=== PATIENT | male | born 1945 | race Asian ===

== ENCOUNTER 2017-05-31 11:41 | Inpatient (IN) | payer OTHER ==
[~2017-05-31] VITALS: Ht 167.6 cm; Wt 65.8 kg
[2017-05-31 12:25] VITALS: BP 164/86
[2017-05-31 12:44] LABS: HEMATOCRIT 43.1 % (42.0-52.0); HEMOGLOBIN 15.1 G/DL (14.2-18.0); MEAN CORPUSCULAR VOLUME 92 FL (80-99); PLATELET COUNT 203 K/UL (150-450); RED BLOOD COUNT 4.67 M/UL (4.70-6.10); RED CELL DISTRIBUTION WIDTH 10.6 % (11.6-14.8); WHITE BLOOD COUNT 10.9 K/UL (4.8-10.8)
--- NOTE | 2017-05-31 13:05 | Diagnostic Imaging Report ---
Indication: Cough Technique: One view of the chest Comparison: none Findings: Lungs and pleural spaces are clear. The heart size is normal. The aorta is tortuous and calcified. Impression: No acute process
[2017-05-31 13:14] LABS: ANION GAP 7 mmol/L (5-15); BLOOD UREA NITROGEN 21 mg/dL (7-18); CALCIUM 9.1 MG/DL (8.5-10.1); CARBON DIOXIDE 30 MMOL/L (21-32); CHLORIDE 100 MMOL/L (98-107); CREATININE 0.9 MG/DL (0.55-1.30); POTASSIUM 4.3 MMOL/L (3.5-5.1); SODIUM 137 MMOL/L (136-145)
--- NOTE | 2017-05-31 13:25 | Emergency Room Report ---
History of Present Illness General Chief Complaint: General Complaint Source: Patient, Family Member Present Illness HPI 71-year-old male comes to [facility], presenting with episode of coffee- ground emesis. Vomited about 2 times today. Epigastric pain. No black or bloody stools. This is the first time patient has had coffee-ground emesis. No long history of alcohol abuse. No chronic NSAID use. Allergies: Coded Allergies: No Known Allergies (Unverified , 05/31/17) Patient History Past Medical History: see triage record Past Surgical History: none Pertinent Family History: none Reviewed Nursing Documentation: PMH: Agreed, PSxH: Agreed Nursing Documentation-PMH Hx Hypertension: Yes Review of Systems All Other Systems: negative except mentioned in HPI Physical Exam Vital Signs Date Time Temp Pulse Resp B/P (MAP) Pulse Ox O2 Delivery O2 Flow Rate FiO2 05/31/17 11:56 98.2 58 16 164/86 9 Room Air 98.2 Sp02 EP Interpretation: reviewed, normal General Appearance: alert, GCS 15, non-toxic, mild distress Head: normocephalic, atraumatic Eyes: bilateral eye normal inspection, bilateral eye PERRL, bilateral eye EOMI ENT: normal ENT inspection, normal pharynx, normal voice, moist mucus membranes Neck: normal inspection, full range of motion, supple Respiratory: normal inspection, lungs clear, normal breath sounds, no respiratory distress, no retraction, no wheezing, speaking full sentences, chest symmetrical Cardiovascular #1: normal inspection, regular rate, rhythm, no edema, normal capillary refill Cardiovascular #2: 2+ radial (R), 2+ radial (L) Gastrointestinal: normal inspection, non tender, soft, non-distended, no guarding Genitourinary: no CVA tenderness Musculoskeletal: normal inspection, back normal, normal range of motion, non- tender Neurologic: normal inspection, alert, oriented x3, responsive, motor strength/ tone normal, sensory intact, normal gait, speech normal Psychiatric: normal inspection, judgement/insight normal, memory normal Skin: normal inspection, normal color, no rash, warm/dry, well hydrated, normal turgor Medical Decision Making Diagnostic Impression: Primary Impression: Coffee ground emesis ER Course 71-year-old male presenting with episode of coffee-ground emesis DDX: GI bleed, gastritis, gastric ulcer, no history of liver failure to suggest esophageal varices Plan: Obtain labs, ua, EKG, CXR Protonix Zofran ER course: Patient has been monitored during ED stay, HD stable No further episodes of vomiting I spoke with patient and daughter extensively, I told patient that he needs to be admitted to the hospital for further workup. However patient is saying that he feels much better, does not have any nausea. Denies any black stool. He would like to go home. Daughter and myself as convincing patient does state, however he does not want to stay overnight in the hospital. He lives 5 minutes away and states that if any thing happens that he can come right back. Patient appears reliable. Lives with family members, and daughter states that she will be checking on him frequently Disposition: Patient is clinically sober, is free from from distracting injury, and has intact judgement and capacity to decide to leave against medical advice. Patient came in for coffee-ground emesis. I'm concerned for GI bleed. Patient verbalized understanding of my concern and my need to admit patient to hospital , but patient states "I feel much better and I would like to go home " . I explained to patient the risks of leaving AMA and patient informed that if they leave, they could get worse, ould become become critically ill, possibly become disabled or . Patient verbalized back to me understanding of these risks but still wants to leave. Please note that this Emergency Department Report was dictated using [employer] technology software, occasionally this can lead to erroneous entry secondary to interpretation by the dictation equipment. EKG Diagnostic Results EP Interpretation: Yes Rate: normal Rhythm: NSR ST Segments: No acute changes ASA given to patient: No Rhythm Strip EP Interpretation: Yes Rate: 70 Rhythm: NSR, no PVCs, no ectopy Chest X-ray CXR: Ordered: Yes 1 view Indication: Pain EP interpretation: Yes Interpretation: No consolidation, no effusion, no PTX, no acute cardiopulmonary disease, no free air under the diaphragm Impression: No acute disease Electronically signed by Jason Ren MD Laboratory Tests Test 05/31/17 12:27 White Blood Count 10.9 K/UL (4.8-10.8) H Red Blood Count 4.67 M/UL (4.70-6.10) L Hemoglobin 15.1 G/DL (14.2-18.0) Hematocrit 43.1 % (42.0-52.0) Mean Corpuscular Volume 92 FL (80-99) Mean Corpuscular Hemoglobin 32.5 PG (27.0-31.0) H Mean Corpuscular Hemoglobin Concent 35.2 G/DL (32.0-36.0) Red Cell Distribution Width 10.6 % (11.6-14.8) L Platelet Count 203 K/UL (150-450) Mean Platelet Volume 6.4 FL (6.5-10.1) L Neutrophils (%) (Auto) % (45.0-75.0) Lymphocytes (%) (Auto) % (20.0-45.0) Monocytes (%) (Auto) % (1.0-10.0) Eosinophils (%) (Auto) % (0.0-3.0) Basophils (%) (Auto) % (0.0-2.0) Differential Total Cells Counted 100 Neutrophils % (Manual) 87 % (45-75) H Lymphocytes % (Manual) 7 % (20-45) L Monocytes % (Manual) 6 % (1-10) Eosinophils % (Manual) 0 % (0-3) Basophils % (Manual) 0 % (0-2) Band Neutrophils 0 % (0-8) Platelet Estimate Adequate Platelet Morphology Normal Red Blood Cell Morphology Anisocytosis 1+ Prothrombin Time 10.1 SEC (9.30-11.50) Prothrombin Time INR 1.0 (0.9-1.1) PTT 25 SEC (23-33) Sodium Level 137 MMOL/L (136-145) Potassium Level 4.3 MMOL/L (3.5-5.1) Chloride Level 100 MMOL/L (98-107) Carbon Dioxide Level 30 MMOL/L (21-32) Anion Gap 7 mmol/L (5-15) Blood Urea Nitrogen 21 mg/dL (7-18) H Creatinine 0.9 MG/DL (0.55-1.30) Estimate Glomerular Filtration Rate > 60 mL/min (>60) Glucose Level 133 MG/DL (74-106) H Calcium Level 9.1 MG/DL (8.5-10.1) Total Bilirubin 0.7 MG/DL (0.2-1.0) Aspartate Amino Transferase (AST) 21 U/L (15-37) Alanine Aminotransferase (ALT) 31 U/L (12-78) Alkaline Phosphatase 69 U/L (46-116) Troponin I 0.017 ng/mL (0.000-0.056) Total Protein 7.6 G/DL (6.4-8.2) Albumin 3.7 G/DL (3.4-5.0) Globulin 3.9 g/dL Albumin/Globulin Ratio 0.9 (1.0-2.7) L Lipase 194 U/L (73-393) Last Vital Signs Date Time Temp Pulse Resp B/P (MAP) Pulse Ox O2 Delivery O2 Flow Rate FiO2 05/31/17 11:56 98.2 58 16 164/86 9 Room Air 98.2 Disposition: AGAINST MEDICAL ADVICE Condition: Serious Referrals: NOT CHOSEN IPA/,REFERRING (PCP) Jason Ren M.D. May 31, 2017 13:24
[2017-05-31 13:26] LABS: ALANINE AMINOTRANSFERASE 31 U/L (12-78); ALBUMIN 3.7 G/DL (3.4-5.0); ALBUMIN/GLOBULIN RATIO 0.9 (1.0-2.7); ALKALINE PHOSPHATASE 69 U/L (46-116); ASPARTATE AMINO TRANSFERASE 21 U/L (15-37); BILIRUBIN,TOTAL 0.7 MG/DL (0.2-1.0)
[2017-05-31] MEDS ORDERED: Pantoprazole Inj IVP SCH (14:30)
[2017-05-31 15:46] VITALS: BP 147/96
[2017-05-31] MEDS ORDERED: Mylanta II UD 30ml ORAL PRN (17:30)
[2017-05-31] MEDS ORDERED: Nitroglycerin Subl 0.4mg tab SL PRN (17:30)
[2017-05-31] MEDS ORDERED: Morphine Sulfate 2mg/ml Inj IVP PRN (17:30)
[2017-05-31] MEDS ORDERED: Miralax 17gm pkt ORAL PRN (17:30)
[2017-05-31] MEDS: D5NS 1,000 ML IV SCH (18:06)
[2017-05-31 19:20] VITALS: BP 136/89
--- NOTE | 2017-05-31 20:06 | General Progress Note ---
Assessment/Plan Assessment/Plan GI Consult Dictated Will arrange for EGD tomorrow afternoon. Thank you Tomás Canchola MD Subjective Allergies: Coded Allergies: No Known Allergies (Unverified , 05/31/17) Objective Last 24 Hour Vital Signs Date Time Temp Pulse Resp B/P (MAP) Pulse Ox O2 Delivery O2 Flow Rate FiO2 05/31/17 19:49 136/67 05/31/17 19:20 98.2 69 20 136/89 95 Room Air 05/31/17 15:46 97.7 62 18 147/96 96 Room Air 05/31/17 12:25 98.2 16 164/86 9 Room Air 98.2 05/31/17 11:56 98.2 58 16 164/86 9 Room Air 98.2 Laboratory Tests 05/31/17 12:27: White Blood Count 10.9H, Red Blood Count 4.67L, Hemoglobin 15.1, Hematocrit 43.1 , Mean Corpuscular Volume 92, Mean Corpuscular Hemoglobin 32.5H, Mean Corpuscular Hemoglobin Concent 35.2, Red Cell Distribution Width 10.6L, Platelet Count 203, Mean Platelet Volume 6.4L, Neutrophils (%) (Auto) , Lymphocytes (%) (Auto) , Monocytes (%) (Auto) , Eosinophils (%) (Auto) , Basophils (%) (Auto) , Differential Total Cells Counted 100, Neutrophils % ( Manual) 87H, Lymphocytes % (Manual) 7L, Monocytes % (Manual) 6, Eosinophils % ( Manual) 0, Basophils % (Manual) 0, Band Neutrophils 0, Platelet Estimate Adequate, Platelet Morphology Normal, Red Blood Cell Morphology , Anisocytosis 1 +, Prothrombin Time 10.1, Prothromb Time International Ratio 1.0, Activated Partial Thromboplast Time 25, Sodium Level 137, Potassium Level 4.3, Chloride Level 100, Carbon Dioxide Level 30, Anion Gap 7, Blood Urea Nitrogen 21H, Creatinine 0.9, Estimat Glomerular Filtration Rate > 60, Glucose Level 133H, Calcium Level 9.1, Total Bilirubin 0.7, Aspartate Amino Transf (AST/SGOT) 21, Alanine Aminotransferase (ALT/SGPT) 31, Alkaline Phosphatase 69, Troponin I 0.017, Total Protein 7.6, Albumin 3.7, Globulin 3.9, Albumin/Globulin Ratio 0.9L , Lipase 194 Height (Feet): 5 Height (Inches): 6.00 Weight (Pounds): 145 GISELA CANCHOLA May 31, 2017 20:06
--- NOTE | 2017-05-31 22:45 | Consultation ---
DATE OF CONSULTATION: 05/31/2017 GASTROENTEROLOGY CONSULTATION REPORT CONSULTING PHYSICIAN: Luc Canchola M.D. REFERRING PHYSICIAN: Eb Ch M.D. CHIEF COMPLAINT: I was asked to see this patient by Dr. Eb Ch for evaluation of hematemesis. HISTORY OF PRESENT ILLNESS: The patient is a 71-year-old man, who has had some periodic episodes of dizziness and nausea who today had a bout of vomiting with some coffee-ground material in his emesis. He has not had a history of upper gastrointestinal bleeding, although he had an endoscopy about 10 years ago and he can not recall the results. The patient may have had a colonoscopy at that time too. He has some medical problems, which are being treated on a routine basis as listed below. He denies any abdominal pain or melena. PAST MEDICAL HISTORY: History of hypertension, on treatment. MEDICATIONS: See chart list for details. SOCIAL HISTORY: The patient lives in [facility]. FAMILY HISTORY: Noncontributory. REVIEW OF SYSTEMS: Otherwise negative. PHYSICAL EXAMINATION: GENERAL: A very pleasant man, seen in his room. HEENT: Normocephalic and atraumatic. Sclerae anicteric. Oropharynx clear. NECK: Supple. CHEST: Clear to auscultation. CARDIOVASCULAR: Revealed regular rate. ABDOMEN: Soft and nontender. EXTREMITIES: No edema. LABORATORY DATA: Noted. ASSESSMENT: This patient presents with coffee-ground or hematemesis of unclear etiology. Given his vertigo-type symptoms and his nausea, it may have been due to a Scarlet-Hardin tear, which is usually a self-limited process. An endoscopy can evaluate this cause and risk stratify to optimal treatment. RECOMMENDATIONS: 1. Keep the patient NPO after midnight. 2. Proton pump inhibitor. 3. IV fluids. 4. Endoscopy tomorrow. Thank you for asking me to participate in the care of this patient. Luc Canchola M.D. DR: Deborah JOB#: [id number] CC:
[2017-05-31 23:32] VITALS: BP 128/91
[2017-06-01] VITALS (8 sets, daily range): BP systolic 134–147; BP diastolic 81–92
[2017-06-01] MEDS: D5NS 1,000 ML IV SCH ×2 (03:47→12:36)
--- NOTE | 2017-06-01 07:28 | Anethesia Preoperative Eval ---
Anesthesia Pre-op PMH/ROS General Date of Evaluation: Jun 01, 2017 Time of Evaluation: 07:25 Anesthesiologist: jose ASA Score: ASA 3 Mallampati Score Class I : Soft palate, uvula, fauces, pillars visible Class II: Soft palate, uvula, fauces visible Class III: Soft palate, base of uvula visible Class IV: Only hard plate visible Mallampati Classification: Class II Surgeon: bertha Diagnosis: nausea, gi bleed Surgical Procedure: egd Anesthesia History: none Social History: smoking - nonsmoker Family History: no anesthesia problems Allergies: Coded Allergies: No Known Allergies (Unverified , 05/31/17) Medications: see eMAR Past Medical History Cardiovascular: Reports: HTN Gastrointestinal/Genitourinary: Reports: other - peptic ulcer Anesthesia Pre-op Phys. Exam Physician Exam Last Vital Signs Date Time Temp Pulse Resp B/P (MAP) Pulse Ox O2 Delivery O2 Flow Rate FiO2 06/01/17 04:01 96.6 57 20 146/87 95 Room Air Constitutional: NAD Neurologic: CN 2-12 intact Cardiovascular: RRR Respiratory: CTA Gastrointestinal: S/NT/ND Airway Exam Mallampati Score: Class II MO: full Neck: supple TMD: 2fb ROM: limited Anesthesia Pre-op A/P Labs Hematology Test 05/31/17 12:27 White Blood Count 10.9 K/UL (4.8-10.8) H Red Blood Count 4.67 M/UL (4.70-6.10) L Hemoglobin 15.1 G/DL (14.2-18.0) Hematocrit 43.1 % (42.0-52.0) Mean Corpuscular Volume 92 FL (80-99) Mean Corpuscular Hemoglobin 32.5 PG (27.0-31.0) H Mean Corpuscular Hemoglobin Concent 35.2 G/DL (32.0-36.0) Red Cell Distribution Width 10.6 % (11.6-14.8) L Platelet Count 203 K/UL (150-450) Mean Platelet Volume 6.4 FL (6.5-10.1) L Neutrophils (%) (Auto) % (45.0-75.0) Lymphocytes (%) (Auto) % (20.0-45.0) Monocytes (%) (Auto) % (1.0-10.0) Eosinophils (%) (Auto) % (0.0-3.0) Basophils (%) (Auto) % (0.0-2.0) Differential Total Cells Counted 100 Neutrophils % (Manual) 87 % (45-75) H Lymphocytes % (Manual) 7 % (20-45) L Monocytes % (Manual) 6 % (1-10) Eosinophils % (Manual) 0 % (0-3) Basophils % (Manual) 0 % (0-2) Band Neutrophils 0 % (0-8) Platelet Estimate Adequate Platelet Morphology Normal Red Blood Cell Morphology Anisocytosis 1+ Coagulation Test 05/31/17 12:27 Prothrombin Time 10.1 SEC (9.30-11.50) Prothromb Time International Ratio 1.0 (0.9-1.1) Activated Partial Thromboplast Time 25 SEC (23-33) Chemistry Test 05/31/17 12:27 Sodium Level 137 MMOL/L (136-145) Potassium Level 4.3 MMOL/L (3.5-5.1) Chloride Level 100 MMOL/L (98-107) Carbon Dioxide Level 30 MMOL/L (21-32) Anion Gap 7 mmol/L (5-15) Blood Urea Nitrogen 21 mg/dL (7-18) H Creatinine 0.9 MG/DL (0.55-1.30) Estimat Glomerular Filtration Rate > 60 mL/min (>60) Glucose Level 133 MG/DL (74-106) H Calcium Level 9.1 MG/DL (8.5-10.1) Total Bilirubin 0.7 MG/DL (0.2-1.0) Aspartate Amino Transf (AST/SGOT) 21 U/L (15-37) Alanine Aminotransferase (ALT/SGPT) 31 U/L (12-78) Alkaline Phosphatase 69 U/L (46-116) Troponin I 0.017 ng/mL (0.000-0.056) Total Protein 7.6 G/DL (6.4-8.2) Albumin 3.7 G/DL (3.4-5.0) Globulin 3.9 g/dL Albumin/Globulin Ratio 0.9 (1.0-2.7) L Lipase 194 U/L (73-393) Risk Assessment & Plan Assessment: asa3 Plan: mac Status Change Before Surgery: No Pre-Antibiotics Drug: na JOSE,SHAWNA Jun 01, 2017 07:28
[2017-06-01] MEDS ORDERED: Midazolam 2mg/2ml Inj IVP PRN (07:30)
[2017-06-01] MEDS ORDERED: DiphenhydrAMINE 50mg/ml Inj IVP PRN ×2 (07:30→14:30)
[2017-06-01] MEDS ORDERED: Atropine Inj 1mg/10ml Syr IV PRN (07:30)
[2017-06-01] MEDS ORDERED: fentaNYL 100 mcg/2 mL IV PRN (07:30)
[2017-06-01 09:01] LABS: BASOPHILS % (AUTO) 0.4 % (0.0-2.0); EOSINOPHILS % (AUTO) 0.6 % (0.0-3.0); HEMATOCRIT 42.5 % (42.0-52.0); LYMPHOCYTES % (AUTO) 12.6 % (20.0-45.0); MEAN CORPUSCULAR VOLUME 91 FL (80-99); MONOCYTES % (AUTO) 7.5 % (1.0-10.0); NEUTROPHILS % (AUTO) 78.9 % (45.0-75.0); PLATELET COUNT 213 K/UL (150-450); RED BLOOD COUNT 4.67 M/UL (4.70-6.10); RED CELL DISTRIBUTION WIDTH 10.9 % (11.6-14.8); WHITE BLOOD COUNT 6.4 K/UL (4.8-10.8)
[2017-06-01 09:38] LABS: ALANINE AMINOTRANSFERASE 21 U/L (12-78); ALBUMIN 3.2 G/DL (3.4-5.0); ALBUMIN/GLOBULIN RATIO 0.9 (1.0-2.7); ALKALINE PHOSPHATASE 68 U/L (46-116); ANION GAP 6 mmol/L (5-15); ASPARTATE AMINO TRANSFERASE 21 U/L (15-37); BILIRUBIN,TOTAL 1.5 MG/DL (0.2-1.0); BLOOD UREA NITROGEN 13 mg/dL (7-18); CALCIUM 8.6 MG/DL (8.5-10.1); CARBON DIOXIDE 29 MMOL/L (21-32); CHLORIDE 105 MMOL/L (98-107); CREATININE 0.9 MG/DL (0.55-1.30); PHOSPHORUS 2.8 MG/DL (2.5-4.9); POTASSIUM 3.5 MMOL/L (3.5-5.1); SODIUM 140 MMOL/L (136-145)
[2017-06-01 09:39] LABS: BILIRUBIN,DIRECT 0.2 MG/DL (0.0-0.3)
--- NOTE | 2017-06-01 14:15 | Anethesia Preoperative Eval ---
Anesthesia Pre-op PMH/ROS General Date of Evaluation: Jun 01, 2017 Anesthesiologist: Danish ASA Score: ASA 2 Mallampati Score Class I : Soft palate, uvula, fauces, pillars visible Class II: Soft palate, uvula, fauces visible Class III: Soft palate, base of uvula visible Class IV: Only hard plate visible Mallampati Classification: Class II Surgeon: Jesika Diagnosis: Coffee ground emesis Surgical Procedure: EGD Allergies: Coded Allergies: No Known Allergies (Unverified , 05/31/17) Past Medical History Cardiovascular: Reports: HTN, Denies: CAD, [place], valve dz, arrhythmia, other Pulmonary: Denies: asthma, COPD, NICOLAS, other Gastrointestinal/Genitourinary: Reports: other - PUD, Denies: GERD, CRI, ESRD Neurologic/Psychiatric: Denies: dementia, CVA, depression/anxiety, TIA, other Endocrine: Denies: DM, hypothyroidism, steroids, other HEENT: Denies: cataract (L), cataract (R), glaucoma, PAIMIUT (L), PAIMIUT (R), other Hematology/Immune: Denies: anemia, DVT, bleeding disorder, other Musculoskeletal/Integumentary: Denies: OA, RA, DJD, DDD, edema, other PSxH Narrative: Denies Anesthesia Pre-op Phys. Exam Physician Exam Last Vital Signs Date Time Temp Pulse Resp B/P (MAP) Pulse Ox O2 Delivery O2 Flow Rate FiO2 06/01/17 12:00 97.2 59 20 145/92 99 06/01/17 04:01 Room Air Constitutional: NAD Cardiovascular: RRR Respiratory: CTA Airway Exam Mallampati Score: Class II MO: full ROM: full Anesthesia Pre-op A/P Labs Hematology Test 06/01/17 08:20 White Blood Count 6.4 K/UL (4.8-10.8) Red Blood Count 4.67 M/UL (4.70-6.10) L Hemoglobin 15.0 G/DL (14.2-18.0) Hematocrit 42.5 % (42.0-52.0) Mean Corpuscular Volume 91 FL (80-99) Mean Corpuscular Hemoglobin 32.1 PG (27.0-31.0) H Mean Corpuscular Hemoglobin Concent 35.3 G/DL (32.0-36.0) Red Cell Distribution Width 10.9 % (11.6-14.8) L Platelet Count 213 K/UL (150-450) Mean Platelet Volume 6.0 FL (6.5-10.1) L Neutrophils (%) (Auto) 78.9 % (45.0-75.0) H Lymphocytes (%) (Auto) 12.6 % (20.0-45.0) L Monocytes (%) (Auto) 7.5 % (1.0-10.0) Eosinophils (%) (Auto) 0.6 % (0.0-3.0) Basophils (%) (Auto) 0.4 % (0.0-2.0) Coagulation Test 06/01/17 08:20 Prothrombin Time 10.4 SEC (9.30-11.50) Prothromb Time International Ratio 1.0 (0.9-1.1) Activated Partial Thromboplast Time 28 SEC (23-33) Chemistry Test 06/01/17 08:20 Sodium Level 140 MMOL/L (136-145) Potassium Level 3.5 MMOL/L (3.5-5.1) Chloride Level 105 MMOL/L (98-107) Carbon Dioxide Level 29 MMOL/L (21-32) Anion Gap 6 mmol/L (5-15) Blood Urea Nitrogen 13 mg/dL (7-18) Creatinine 0.9 MG/DL (0.55-1.30) Estimat Glomerular Filtration Rate > 60 mL/min (>60) Glucose Level 108 MG/DL (74-106) H Calcium Level 8.6 MG/DL (8.5-10.1) Phosphorus Level 2.8 MG/DL (2.5-4.9) Magnesium Level 1.9 MG/DL (1.8-2.4) Total Bilirubin 1.5 MG/DL (0.2-1.0) H Direct Bilirubin 0.2 MG/DL (0.0-0.3) Aspartate Amino Transf (AST/SGOT) 21 U/L (15-37) Alanine Aminotransferase (ALT/SGPT) 21 U/L (12-78) Alkaline Phosphatase 68 U/L (46-116) Total Protein 6.9 G/DL (6.4-8.2) Albumin 3.2 G/DL (3.4-5.0) L Globulin 3.7 g/dL Albumin/Globulin Ratio 0.9 (1.0-2.7) L Amylase Level 79 U/L (25-115) Studies Pre-op Studies: EKG - r Risk Assessment & Plan Assessment: ASA II Plan: MAC Status Change Before Surgery: No Pre-Antibiotics Drug: N/A MAX SOLANO M.D. Jun 01, 2017 14:15
[2017-06-01] MEDS ORDERED: LR 1000ml 1,000 ML IVLG SCH (14:25)
--- NOTE | 2017-06-01 14:26 | Immediate Post-Op Evaluation ---
Immediate Post-Op Evalulation Immediate Post-Op Evalulation Procedure: EGD Date of Evaluation: Jun 01, 2017 Time of Evaluation: 16:04 IV Fluids: 500 Blood Products: 0 Estimated Blood Loss: 0 Urinary Output: 0 Blood Pressure Systolic: 134 Blood Pressure Diastolic: 84 Pulse Rate: 68 Respiratory Rate: 16 O2 Sat by Pulse Oximetry: 100 Temperature (Fahrenheit): 97.8 Pain Score (1-10): 0 Nausea: No Vomiting: No Complications 0 Patient Status: awake, reacts, patent, none Hydration Status: adequate Drug: N/A MAX SOLANO M.D. Jun 01, 2017 14:26
--- NOTE | 2017-06-01 14:27 | 48 Hour Post Anesthesia Eval ---
Post Anesthesia Evaluation Procedure: EGD Date of Evaluation: Jun 01, 2017 Airway: patent Nausea: No Vomiting: No Pain Intensity: 0 Hydration Status: adequate Cardiopulmonary Status: at baseline Mental Status/LOC: patient returned to baseline Post-Anesthesia Complications: 0 Follow-up care needed: N/A - further care as per primary team MAX SOLANO M.D. Jun 01, 2017 14:27
--- NOTE | 2017-06-01 15:22 | Cardiology Report ---
APPROVED REPORT EKG Measurement Heart [id number] Sinus bradycardia with premature atrial complexes Otherwise normal ECG
[2017-06-01] MEDS ORDERED: Propofol 200mg/20ml IV ONE (15:30)
[2017-06-01] MEDS ORDERED: Lidocaine 1% MPF 10mg/ml 5ml ONE (15:30)
[2017-06-01] MEDS ORDERED: NS 500ML IV ONE (15:40)
--- NOTE | 2017-06-01 15:42 | Pre-Procedure Note/Attestation ---
Pre-Procedure Note/Attestation Complete Prior to Procedure Planned Procedure: not applicable Procedure Narrative: EGD Indications for Procedure Pre-Operative Diagnosis: UGIB Attestation I attest that I discussed the nature of the procedure; its benefits; risks and complications; and alternatives (and the risks and benefits of such alternatives ), prior to the procedure, with the patient (or the patient's legal mill representative). I attest that, if there was a reasonable possibility of needing a blood transfusion, the patient (or the patient's legal mill representative) was given the [facility] standardized written summary, pursuant to the [place] Blood Safety Act ([place] Health and Safety Code # 1645, as amended). I attest that I re-evaluated the patient just prior to the surgery and that there has been no change in the patient's H&P, except as documented below: GISELA ZEPEDA Jun 01, 2017 15:42
--- NOTE | 2017-06-01 16:03 | Endoscopy Procedure Note ---
Endoscopy Procedure Note General Indication for Procedure: UGIB Procedures Performed: EGD Operative Findings/Diagnosis: HH, GAURANG Specimen: yes Pt Tolerated Procedure Well: Yes Estimated Blood Loss: none Anesthesia Anesthesiologist: see report Anesthesia: MAC Medications Medication Given: see anesthesia record Inserted Devices Implant(s) used?: No GI Core Measures 50 yrs or older w/o bx or poly: Not Applicable 10yrs. F/U not recommended: Not Applicable If not recommended, why?: GISELA ZEPEDA Jun 01, 2017 16:03
--- NOTE | 2017-06-01 16:03 | General Progress Note ---
Assessment/Plan Assessment/Plan GI Consult Assessment - UGIB - Vertigo - HTN Recommendations - NPO - EGD today - PPI - antiemetics POST PROCEDURE - 4 cm hiatal hernia - Cardia gastritis - biopsied - GERD with linear lower esophageal erosions - No active bleeding - gastric biopsies obtained Subjective Allergies: Coded Allergies: No Known Allergies (Unverified , 05/31/17) Subjective No further vomiting says gets nausea and vomiting after vertigo d/w pt re EGD - agreed Objective Last 24 Hour Vital Signs Date Time Temp Pulse Resp B/P (MAP) Pulse Ox O2 Delivery O2 Flow Rate FiO2 06/01/17 12:00 97.2 59 20 145/92 99 06/01/17 08:00 97.7 64 20 144/90 96 06/01/17 04:01 96.6 57 20 146/87 95 Room Air 05/31/17 23:32 97.5 68 20 128/91 96 Room Air 05/31/17 19:49 136/67 05/31/17 19:20 98.2 69 20 136/89 95 Room Air Intake and Output 05/31/17 06/01/17 19:00 07:00 Intake Total 0 ml 1200 ml Balance 0 ml 1200 ml Intake Oral 0 ml IV Total 1200 ml # Voids 1 1 # Bowel Movements 1 Laboratory Tests 06/01/17 08:20: White Blood Count 6.4, Red Blood Count 4.67L, Hemoglobin 15.0, Hematocrit 42.5, Mean Corpuscular Volume 91, Mean Corpuscular Hemoglobin 32.1H, Mean Corpuscular Hemoglobin Concent 35.3, Red Cell Distribution Width 10.9L, Platelet Count 213, Mean Platelet Volume 6.0L, Neutrophils (%) (Auto) 78.9H, Lymphocytes (%) (Auto) 12.6L, Monocytes (%) (Auto) 7.5, Eosinophils (%) (Auto) 0.6, Basophils (%) (Auto ) 0.4, Prothrombin Time 10.4, Prothromb Time International Ratio 1.0, Activated Partial Thromboplast Time 28, Sodium Level 140, Potassium Level 3.5, Chloride Level 105, Carbon Dioxide Level 29, Anion Gap 6, Blood Urea Nitrogen 13, Creatinine 0.9, Estimat Glomerular Filtration Rate > 60, Glucose Level 108H, Calcium Level 8.6, Phosphorus Level 2.8, Magnesium Level 1.9, Total Bilirubin 1.5H, Direct Bilirubin 0.2, Aspartate Amino Transf (AST/SGOT) 21, Alanine Aminotransferase (ALT/SGPT) 21, Alkaline Phosphatase 68, Total Protein 6.9, Albumin 3.2L, Globulin 3.7, Albumin/Globulin Ratio 0.9L, Amylase Level 79 Height (Feet): 5 Height (Inches): 6.00 Weight (Pounds): 145 Objective WDWN Man NCAT supple CTA RRR soft ND NT no edema non focal GISELA ZEPEDA Jun 01, 2017 16:03
--- NOTE | 2017-06-01 16:05 | Brief Operative Note ---
Immediate Post Operative Note Operative Note Chief Complaint: UGIB Pre-op Diagnosis: UGIB Procedure: EGD / bx Post-op Diagnosis: - 4 cm hiatal hernia - Cardia gastritis - biopsied - GERD with linear lower esophageal erosions - No active bleeding - gastric biopsies obtained Surgeon: bertha Anesthesiologist: see report Anesthesia: MAC Specimen: yes Complications: none Condition: stable Fluids: recorded Estimated Blood Loss: none Drains: none Implant(s) used?: No GISELA ZEPEDA Jun 01, 2017 16:05
[2017-06-01] MEDS ORDERED: ZANTAC150 MG ORAL (18:12)
[2017-06-01] MEDS ORDERED: D5NS 1000ml IV ONE (18:30)
--- NOTE | 2017-06-01 22:45 | History and Physical Report ---
DATE OF ADMISSION: 06/01/2017 CHIEF COMPLAINT: The patient is a 71-year-old male, who presents with a chief complaint of vertigo and nausea and vomiting. HISTORY OF PRESENT ILLNESS: The patient has a long-standing history of vertigo. The patient states he normally gets dizzy for five minutes in the morning when he awakes. Yesterday, 05/31/2017, the patient went to work. The patient began to feel unsteady on his feet. The patient states unsteadiness lasted about 5 minutes. The patient also had nausea and vomiting x2. There was coffee-grounds emesis present in the vomitus. The patient presented to [place] emergency room. The patient is admitted for coffee-ground emesis to rule out acute upper gastrointestinal hemorrhage. PAST MEDICAL HISTORY: Significant for, 1. Hypertension. 2. Benign prostatic hypertrophy. PAST SURGICAL HISTORY: Significant for left ear surgery. CURRENT MEDICATIONS: 1. Unknown antihypertensive medication. 2. Unknown benign prostatic hypertrophy medication. ALLERGIES: No known drug allergies. 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 The patient denies tobacco use. The patient denies alcohol use. REVIEW OF SYSTEMS: CONSTITUTIONAL: The patient denies weight loss or weight gain. The patient denies fevers or chills. HEENT: The patient denies ear or throat pain. The patient denies headache. CARDIOVASCULAR: The patient denies palpitations or chest pain. CHEST: The patient denies wheeze or shortness of breath. ABDOMEN: The patient complains of nausea and vomiting as above. The patient complains of coffee-ground emesis as above. The patient denies diarrhea or constipation. GENITOURINARY: The patient denies dysuria or increased frequency of urination. NEUROMUSCULAR: The patient complains of vertigo as above. The patient denies generalized weakness. PHYSICAL EXAMINATION: VITAL SIGNS: Temperature 97.9, respirations 16, pulse 60, and blood pressure 134/84. GENERAL: The patient is a well-developed and well-nourished [place] male, in no apparent distress. HEENT: Eyes, pupils are equal and responsive to light and accommodation. Extraocular movements are intact. NECK: Supple without lymphadenopathy. CHEST: Lungs are clear to auscultation bilaterally without wheezes or rales. CARDIOVASCULAR: Regular rate. S1 and S2 are normal without murmurs, rubs, or gallops. ABDOMEN: Soft, nontender, and nondistended. Positive bowel sounds. No evidence of hepatosplenomegaly. Currently, no rebound or guarding noted. EXTREMITIES: Negative for clubbing, cyanosis, or edema. RECTAL/GENITAL: Refused. NEUROLOGICALLY: Cranial nerves II to XII are grossly intact without focal deficits. Motor strength is 5/5 bilaterally. Deep tendon reflexes are 2+ plantar. LABORATORY STUDIES: WBC 10.9, hemoglobin 15.1, hematocrit 43.1, and platelets 203,000. Sodium 137, potassium 4.3, chloride 100, CO2 30, BUN 29, creatinine 0.9, and glucose 133. ASSESSMENT: This is a 71-year-old male. 1. Possible upper gastrointestinal hemorrhage. 2. Nausea with vomiting. 3. Vertigo. 4. Hypertension. 5. Benign prostatic hypertrophy. TREATMENT: 1. Possible upper gastrointestinal hemorrhage. A Gastroenterology consultation has been obtained with Dr. Canchola. We will follow recommendations of Dr. Canchola. The patient has been started on intravenous Protonix. The patient is currently on a clear liquid diet. 2. Hypertension. The patient does not know the name of his antihypertensive medication. The patient has been started empirically on clonidine p.r.n. for systolic greater than 150 or diastolic greater than 100. 3. Benign prostatic hypertrophy. Srinivasan Jones M.D. DR: GAYLE JOB#: [id number] CC:
--- NOTE | 2017-06-02 00:30 | Procedure Note ---
DATE OF PROCEDURE: 06/01/2017 PROCEDURE: Upper gastrointestinal endoscopy with biopsy. SURGEON: Luc Canchola M.D. ANESTHESIA: Please see the separate anesthesiologist notes for details. PRE-ENDOSCOPIC DIAGNOSIS: Upper gastrointestinal bleeding. POST-ENDOSCOPIC DIAGNOSES: 1. A 3 to 4 cm hiatal hernia. 2. Mild linear erosions in the lower esophagus consistent with gastroesophageal reflux disease. 3. Status post random biopsy of the antrum and the cardia. 4. Mild cardiac gastritis. PROCEDURE: The procedure, its risks, indications, alternatives, and possible complications including, but not limited to bleeding, infection, perforation, , and anesthesia complications were explained to the patient and informed consent was obtained. The patient was then sedated in the left lateral decubitus position. A diagnostic upper endoscope was introduced through the oropharynx and advanced to the duodenum without difficulty. The endoscope was then gradually withdrawn and the mucosa were examined carefully. Examination of the upper gastrointestinal mucosa revealed a 3 to 4 cm hiatal hernia and there were linear erosions in the lower esophagus consistent with gastroesophageal reflux disease. There was also a mild degree of cardia redness. Biopsy of the cardia and antrum were sent to pathology for review. There was no active bleeding at the time of the examination. The endoscope was removed and the patient was sent to recovery in good condition. COMPLICATIONS: None. RECOMMENDATIONS: 1. Follow up biopsy results. 2. Reflux precautions. 3. Proton pump inhibitor. Luc Canchola M.D. DR: MEHNAZ JOB#: [id number] CC:
--- NOTE | 2017-06-02 21:50 | Diagnostic Imaging Report ---
APPROVED REPORT CPT Code: 32448 Present Symptoms Comments: R/O DVT BILATERAL: Imaging reveals a patent deep venous system bilaterally. There is no evidence of thrombus within the femoral, popliteal or tibial segments. The greater saphenous veins are also within normal limits. Doppler indicates normal spontaneous flow within these segments.
--- NOTE | 2017-06-03 11:21 | Discharge Summary ---
Discharge Summary Hospital Course Date of Admission May 31, 2017 at 13:08 Date of Discharge Jun 01, 2017 at 18:31 Admitting Diagnosis Nausea/GI BLEED HPI Don Kc is a 71 year old male who was admitted on May 31, 2017 at 13:08 for Nausea/Gastrointestinal Bleed Hospital Course [id number] Discharge Discharge Disposition Patient was discharged to Home (01) Discharge Diagnoses: Martita Walker NP Jun 03, 2017 11:21
--- NOTE | 2017-06-03 23:16 | Discharge Summary 2 SIG ---
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 BRIEF HOSPITAL COURSE: The patient is a 71-year-old male, who presented to ED for complaints of vertigo with nausea and vomiting. He has a longstanding history of vertigo and normally gets dizzy for 5 minutes in the morning when he wakes up. On the day prior to admission, the patient symptoms lasted longer and began to feel unsteady on his feet. He also had nausea and vomiting x2 and there was coffee-grounds emesis. He denied history of alcohol abuse. No chronic NSAID use. On evaluation at ED, hemoglobin was 15 and hematocrit 43. He had a chest x-ray done that showed no acute disease and EKG was in normal sinus rhythm. He was then admitted to medical floor for evaluation of acute GI bleed. He was seen by GI, he was kept NPO and was given proton-pump inhibitors and IV fluids. On 06/01/2017, he underwent EGD with biopsy. Findings showed 3-4 cm hiatal hernia; mild linear erosion in the lower esophagus consistent with gastroesophageal reflux disease; mild cardiac gastritis. There was no active bleeding noted and no further vomiting. Diet was advanced. He had a venous duplex of lower extremity that was negative for DVT. He was tolerating diet and the patient was discharged home. Advised to follow up for biopsy results. FINAL DIAGNOSES: 1. Possible upper gastrointestinal hemorrhage. 2. Nausea and vomiting. 3. Vertigo. 4. Hypertension. 5. Benign prostatic hypertrophy. 6. Status post esophagogastroduodenoscopy with biopsy. 7. Hiatal hernia 8. Cardiac gastritis. 9. Gastroesophageal reflux disease. DISPOSITION: The patient was discharged home. DISCHARGE MEDICATIONS: Continue with Zantac 300 mg at bedtime. DISCHARGE INSTRUCTIONS: Follow up with Dr. Ch for results of pathology. Srinivasan Jones M.D. I have been assigned to dictate discharge summary on this account and I was not involved in the patient's management. Martita Walker N.P. DR: SANDOVAL JOB#: [id number] CC: DYLAN
== END 2017-06-01 18:31 | disposition home or self-care (01) | DRG 379 ==
LOC: EMR 11:50 → 4W 13:08 → EDBEDREQ 13:32
PROC: 0DD68ZX Extraction of Stomach, Via Natural or Artificial Opening Endoscopic, Diagnostic (ICD-10-PCS; principal; 2017-06-01 15:47)
DX: K92.2 Gastrointestinal hemorrhage, unspecified (principal); I10 Essential (primary) hypertension; R42 Dizziness and giddiness; K44.9 Diaphragmatic hernia without obstruction or gangrene; K29.70 Gastritis, unspecified, without bleeding; K21.9 Gastro-esophageal reflux disease without esophagitis; N40.0 Benign prostatic hyperplasia without lower urinary tract symptoms
CPT/HCPCS: 36415; 71045; 80053; 82150; 82248; 83690; 83735; 84100; 84484; 85007; 85025; 85610; 85730; 86850; 86900; 86901; 93005; 93970; 94003; 94150; 99285; J2405